=== PATIENT | male | born 1960 ===

== ENCOUNTER 2022-11-13 08:46 | Outpatient (CLI) | payer OTHER ==
[~2022-11-13 08:46] MED LIST: AMLODIPINE BESYL5 MG; ATORVASTATIN CA20 MG; GLIMEPIRIDE4 MG; JANUMET 50-1,1 UDTAB; LISINOPRIL20 MG
== END 2022-11-13 08:48 | disposition home or self-care (01) ==
LOC: RX STUDY 08:46
PROVIDERS: ATTEND Internal Medicine Gastroenterology
DX: K56.600 Partial intestinal obstruction, unspecified as to cause (principal); K56.609 Unspecified intestinal obstruction, unspecified as to partial versus complete obstruction; C18.9 Malignant neoplasm of colon, unspecified; K57.92 Diverticulitis of intestine, part unspecified, without perforation or abscess without bleeding